=== PATIENT | male | born 1975 ===

== ENCOUNTER 2023-03-10 20:47 | Emergency (ER) | payer SELFPAY ==
[~2023-03-10 20:47] MED LIST: ETOMIDATE 20 MG/10 ML VIAL IV ONE; ROCURONIUM 50 MG/5 ML VIAL IV ONE
[2023-03-10] MEDS ORDERED: NA CHLORIDE 0.9% 1,000 ML IV ONE (20:48)
[2023-03-10] MEDS ORDERED: propofoL 1,000 MG/100 ML VIAL IV ONE ×2 (21:02→22:52)
[2023-03-10] MEDS ORDERED: ALBUTEROL 2.5 MG/3 ML NEB SOL ONE ×2 (21:05→21:24)
[2023-03-10] MEDS ORDERED: IPRATROPIUM BROM 0.5MG/2.5ML ONE ×2 (21:05→21:24)
[2023-03-10 21:18] LABS: Blood Gas Oxyhemoglobin 96.6 % (94-97); Blood O2 Saturation 97.7 % (92-98.5)
--- NOTE | 2023-03-10 21:22 | RAD REPORT ---
EXAM DESCRIPTION: RAD - Chest Single View - 03/10/2023 9:14 pm CLINICAL HISTORY: CHEST PAIN Chest pain. COMPARISON: No comparisons FINDINGS: Portable technique limits examination quality. The lungs are grossly clear. The heart is normal in size. No displaced fractures.ET tube tip is above the kay[place] at the level of the superior aortic arch. Enteric tube is not visualized on this study.
[2023-03-10] MEDS ORDERED: SODIUM BICARB 50 MEQ/50ML VIAL ONE (21:25)
[2023-03-10] MEDS ORDERED: NA CHLORIDE 0.9% 1,000 ML ONE (21:25)
[2023-03-10 21:31] LABS: Hematocrit 39.2 % (39.6-49.0); Lymphocytes % 44.6 % (15.3-44.8); RBC Red Blood Cell Count 3.95 M/uL (4.33-5.43)
[2023-03-10 21:39] LABS: Transitional Epithelial <5 /HPF (None Seen); Urine Bacteria <20 /HPF (<20); Urine Bilirubin NEGATIVE (Negative); Urine Blood Negative (Negative); Urine Clarity Clear (Clear); Urine Color Colorless (Yellow); Urine Glucose NEGATIVE (Negative); Urine Mucus Slight /HPF (None Seen); Urine Protein TRACE (Negative); Urine Urobilinogen Normal (Normal)
[2023-03-10 22:00] LABS: ALT/SGPT 41 U/L (16-61); Albumin 3.2 g/dL (3.4-5.0); Alkaline Phosphatase 69 U/L (45-117); BUN Blood Urea Nitrogen 19 mg/dL (7-18); Bicarbonate 26 mEq/L (21-32); Bilirubin Total 0.3 mg/dL (0.2-1.0); Glomerular Filtration Rate 72 ml/min (=/>90); Glucose Level 240 mg/dL (74-106); Protein, Total 6.8 g/dL (6.4-8.2); Sodium Level 140 mEq/L (136-145)
[2023-03-10 22:01] LABS: Barbiturates NEGATIVE (NEGATIVE); Benzodiazepines NEGATIVE (NEGATIVE); Cocaine POSITIVE (NEGATIVE); METHAMPHETAM POSITIVE (NEGATIVE); Methadone NEGATIVE (NEGATIVE); Opiates NEGATIVE (NEGATIVE); Phencyclidine NEGATIVE (NEGATIVE); THC Cannibis NEGATIVE (NEGATIVE)
[2023-03-10] MEDS ORDERED: FENTANYL CITR 100 MCG/2 ML ONE (22:04)
[2023-03-10] MEDS ORDERED: NA CHLORIDE 0.9% 50 ML ONE (22:04)
[2023-03-10 22:06] LABS: Protime INR 0.98
[2023-03-10 22:11] LABS: AST/SGOT 41 U/L (15-37); Bilirubin Direct < 0.1 mg/dL (0-0.2); Bilirubin Indirect, Calculated ND mg/dL (0.2-0.8); Potassium 3.2 mEq/L (3.5-5.1)
[2023-03-10] MEDS ORDERED: NS KCL 20MEQ 1,000 ML IV ONE (23:17)
[2023-03-10] MEDS ORDERED: METHYLPREDNISOLONE 125 MG INJ ONE (23:17)
[2023-03-10] MEDS ORDERED: Magnesium Sulfate 2gm IVPB 2 G/50 ML BAG IV ONE (23:18)
[2023-03-10] MEDS ORDERED: MIDAZOLAM HCL IN 0.9 % NACL/PF 100 MG/100 ML BAG IVPB ONE (23:28)
[2023-03-11] MEDS ORDERED: propofoL 1,000 MG/100 ML VIAL IV ONE ×2 (00:20→02:30)
[2023-03-11 00:36] LABS: Arterial Blood Carboxyhemoglob 0.5 % (0-1.5); Blood Gas Oxyhemoglobin 97.1 % (94-97); Blood O2 Saturation 99.1 % (92-98.5)
[2023-03-11] MEDS ORDERED: NA CHLORIDE 0.9% 50 ML ONE (01:04)
[2023-03-11] MEDS ORDERED: FENTANYL CITR 100 MCG/2 ML ONE (01:04)
--- NOTE | 2023-03-11 01:09 | EDPHYS ---
Physician Documentation [facility] Name: Asa Williamson Age: 47 yrs Sex: Male : 1975 Arrival Date: 03/10/2023 Time: 20:47 Bed 4 Private MD: ED Physician Rony Mirza HPI: 03/10 20:58 This 47 yrs old Male presents to ER via Unassigned with complaints of sp4 respiratory distress . 20:58 47-year-old male arrived with EMS in acute respiratory distress and unresponsive sp4 condition. Before patient became unresponsive he has called EMS for respiratory problem. Patient reported that at home he has inhaled chlorine from the chlorine container designed for pool disinfection. Patient developed respiratory distress after that and called EMS. Patient has past medical history of asthma. At the site of a residence patient was initially responsive, anxious, tachypneic, had rhonchi on auscultation. EMS reports patient became unresponsive and apneic while in route to the hospital. Patient was administered BVM ventilation. Time of call based on EMS report 20: 05. Historical: - PMHx: 21:09 Diabetes mellitus; Asthma; jj7 - Immunization history:: Adult Immunizations unknown. - Social history:: Smoking status: unknown. - Family history:: not pertinent. ROS: 21:02 Constitutional: Negative for fever, chills, and weight loss, positive respiratory sp4 distress secondary to inhalation of chlorine. Other review of systems is not available secondary to altered mental status 21:02 All other systems are negative. 21:02 Unable to obtain ROS due to altered mental status. Exam: 21:02 Constitutional: This is a well developed, well nourished patient , arrived with EMS sp4 with BVM ventilations in progress. Patient is cyanotic, diaphoretic, and has altered mentation on arrival nonverbal, patient does seem to be awake but he is not responding to verbal stimuli. Patient has oral airway in place. No gag response. Patient was intubated right after arrival. For airway protection. Just prior to intubation patient noted to be hypoxemic 70% on on the monitor Head/Face: Normocephalic, atraumatic. Eyes: Pupils equal round and reactive to light, ENT: Nares patent. No nasal discharge, no septal abnormalities noted. Tympanic membranes are normal and external auditory canals are clear. Oropharynx with no redness, swelling, or masses, exudates Neck: Trachea midline, no thyromegaly or masses palpated, and no cervical lymphadenopathy. Supple, Chest/axilla: Normal chest wall appearance Nontender with no deformity. No lesions are appreciated. Cardiovascular: There is apnea on arrival pulses present and tachycardic at about 100. Cyanotic in appearance, there is regular tachycardia. Respiratory: Lungs have equal breath sounds bilaterally, moderate to severe expiratory wheezes on auscultation bilaterally. Patient is being ventilated with BVM on arrival.. Intubated right after arrival Abdomen/GI: Soft, with normal bowel sounds. No distension or tympany. No guarding or rebound. Back: No spinal tenderness. No costovertebral tenderness. Male : Normal genitalia with no discharge or lesions. Circumcised male Skin: Warm, diffuse cyanosis. Central pallor. Diaphoretic on arrival MS/ Extremity: Pulses equal, no cyanosis. Intact peripheral pulses. No deformities. No sign of trauma Neuro: Unresponsive to verbal stimuli. Unresponsive to painful stimuli. Cyanotic and diaphoretic 21:02 ECG was reviewed by the Attending Physician. Sinus tachycardia at the rate of 153, EKG time 2044 occasional unifocal PVCs in the form of couplets Vital Signs: 20:35 BP 158 / 77; Weight 73.94 kg; Height 5 ft. 10 in. ; jj7 20:43 Pulse 154; Resp 21; Pulse Ox 71% ; jj7 20:45 BP 200 / 125; Pulse 149; Resp 28; Pulse Ox 98% on ETT ambu; jj7 20:50 BP 180 / 112; Pulse 121; Resp 17; Pulse Ox 98% on ETT ambu; jj7 21:30 BP 179 / 123; Pulse 120; Resp 16; Pulse Ox 100% on 80% FiO2 ETT vent; rv 21:45 BP 171 / 114; Pulse 121; Resp 20; Pulse Ox 100% on 80% FiO2 ETT vent; rv 22:00 BP 147 / 89; Pulse 123; Resp 19; Pulse Ox 100% on 80% FiO2 ETT vent; rv 22:15 BP 105 / 63; Pulse 120; Resp 20; Pulse Ox 100% on 80% FiO2 ETT vent; rv 22:30 BP 123 / 80; Pulse 125; Resp 20; Pulse Ox 100% on 80% FiO2 ETT vent; rv 23:15 BP 118 / 75; Pulse 116; Resp 22; Pulse Ox 100% on 80% FiO2 ETT vent; rv 23:30 BP 95 / 55; Pulse 111; Resp 22; Pulse Ox 100% on 80% FiO2 ETT vent; rv 03/11 00:00 BP 106 / 67; Pulse 104; Resp 20; Pulse Ox 100% on 80% FiO2 ETT vent; rv 00:30 BP 116 / 82; Pulse 103; Resp 17; Pulse Ox 100% on 80% FiO2 ETT vent; rv 01:00 BP 105 / 62; Pulse 102; Resp 19; Pulse Ox 100% on 60% FiO2 ETT vent; rv 01:30 BP 102 / 60; Pulse 99; Resp 18; Pulse Ox 100% on 60% FiO2 ETT vent; rv 02:15 BP 102 / 60; Pulse 99; Resp 19; Temp 97.5(Ca); Pulse Ox 100% on 60% FiO2 ETT vent; rv 03/10 20:35 Body Mass Index 23.39 (73.94 kg, 177.8 cm) [facility] [place] Coma Score: 03/10 21:02 Eye Response: to pain(2). Motor Response: none(1). Verbal Response: none(1). Total: 4. sp4 Ventilator: 21:05 Fi02: 80%; Rate: 16min; T.V.: 420ml; Peep: 5cm; ET tube: 7.5 fr (Oral); jj7 Procedures: 03/11 00:58 Intubation: Intubated Camera assisted scope used for intubation using # 4 Candelario sp4 blade with 8.0 mm ETT. Successful on second attempt. Ventilated with Ambu bag. ventilator. Cricoid pressure applied during procedure. Tube secured with ETT strickland at center of mouth measured 23 cm at lip. Placement verified by CXR, CO2 detector with (+) color change, auscultating bilateral breath sounds, O2 saturation after procedure was 100 %. Patient tolerated well, Improved after intubation . MDM: 03/10 20:57 Patient medically screened. sp4 03/11 00:58 Differential Diagnosis altered mental status, sepsis, Acute respiratory failure, sp4 chemical inhalation, drug abuse, intoxication. Data reviewed: vital signs, nurses notes, EMS record, lab test result(s), EKG, radiologic studies, CT scan, plain films. Consideration of Admission/Observation Patient was admitted/placed on observation. Escalation of care including admission/observation considered. Management of patient was discussed with the following: [facility] Heating Fixture Tender: [place] Director at the [facility]. ED course: Patient's ABG has improved with initial PCO2 at 88 and repeat PCO2 at 50.7. Initial pH 7.05 and repeat pH 7.308 patient was difficult to sedate but now remained stable with propofol and Versed sedation. . 01:05 ED course: CT head reveals no acute intracranial abnormality, CT C-spine reveals no sp4 acute fracture or subluxation. Chest x-ray revealed clear lungs. ET tube at the level of clavicles.. NG tube below the level of diaphragm. Patient at this time stable for transfer for hypoxic respiratory failure. With suspect patient's asthma was worsened by use of methamphetamine and cocaine. Patient tested for methamphetamine and cocaine on his urine drug screen.. 03/10 20:53 Order name: Acetaminophen; Complete Time: 23:00 sp4 03/10 20:53 Order name: Basic Metabolic Panel; Complete Time: 23:00 sp4 03/10 20:53 Order name: CBC with Diff; Complete Time: 22:02 sp4 03/10 20:53 Order name: ETOH Level; Complete Time: 23:00 sp4 03/10 20:53 Order name: Hepatic Function; Complete Time: 23:00 sp4 03/10 20:53 Order name: PT-INR; Complete Time: 23:00 sp4 03/10 20:53 Order name: Ptt, Activated; Complete Time: 23:00 sp4 03/10 20:53 Order name: Salicylate; Complete Time: 23:00 sp4 03/10 20:53 Order name: Urinalysis w/ reflexes; Complete Time: 22:02 sp4 03/10 20:53 Order name: Urine Drug Screen; Complete Time: 22:02 sp4 03/10 20:57 Order name: Lipase; Complete Time: 22:02 4 03/10 20:57 Order name: Lactate w/ 2H reflex if indic.; Complete Time: 23:00 4 03/10 21:13 Order name: ABG; Complete Time: 22: sp4 03/10 22:02 Order name: Urine Culture EDMS 03/11 00:20 Order name: ABG; Complete Time: 00:56 4 03/11 00:20 Order name: SARS RAPID; Complete Time: 02:24 sp4 03/10 20:55 Order name: Chest Single View XRAY; Complete Time: 22:02 sp4 03/10 20:56 Order name: CT Head C Spine 4 03/10 20:53 Order name: EKG - Nurse/Tech; Complete Time: 23:06 sp4 03/10 20:53 Order name: IV Saline Lock; Complete Time: 23:06 sp4 03/10 20:53 Order name: Labs collected and sent; Complete Time: 23:06 sp4 03/10 20:53 Order name: Suicide Screening ([place]); Complete Time: 23:06 sp4 03/10 20:55 Order name: P[place]; Complete Time: 21:15 sp4 03/10 20:55 Order name: NG Tube; Complete Time: 21:15 sp4 EC/05 21:02 Rate is 153 beats/min. Rhythm is regular, Sinus tachycardia with Occasional PVCs. QRS sp4 [place] is Normal. [place] interval is normal. Clinical impression: No evidence of ischemia. Interpreted by me. Administered Medications: 20:40 Drug: NS 0.9% IV 1000 ml Route: IV; Rate: 1 bolus; Site: right hand; rv 03/11 02:40 Follow up: IV Status: Completed infusion; IV Intake: 1000ml rv 03/10 20:41 Drug: Etomidate IVP 40 mg Route: IVP; Site: right hand; rv 03/11 02:41 Follow up: Response: No adverse reaction rv 03/10 20:42 Drug: Rocuronium IVP 100 mg Route: IVP; Site: right hand; rv 03/11 02:40 Follow up: Response: No adverse reaction rv 03/10 21:00 Drug: NS 0.9% IV 1000 ml Route: IV; Rate: 125 ml/hr; Site: right hand; rv 03/11 02:40 Follow up: IV Status: Infusion continued upon transfer rv 03/10 21:10 Drug: Propofol IV 5 mcg/kg/min Route: IV; Rate: calculated rate; Site: left antecubital;rv 21:21 Drug: Sodium Bicarbonate IVP 1 amp Route: IVP; Site: right hand; rv 03/11 02:40 Follow up: Response: No adverse reaction rv 03/10 21:24 Drug: DuoNeb Nebulize (3:1) (2.5 mg - 0.5 mg) 3 ml Route: Nebulizer; rv 03/11 02:41 Follow up: Response: No adverse reaction rv 03/10 21:24 Drug: DuoNeb Nebulize (3:1) (2.5 mg - 0.5 mg) 3 ml Route: Nebulizer; rv 03/11 02:40 Follow up: Response: No adverse reaction rv 03/10 21:24 Drug: DuoNeb Nebulize (3:1) (2.5 mg - 0.5 mg) 3 ml Route: Nebulizer; rv 03/11 02:40 Follow up: Response: No adverse reaction rv 03/10 22:02 Drug: Propofol IV 5 mcg/kg/min Route: IV; Rate: calculated rate; Site: left antecubital;rv 03/11 02:41 Follow up: IV Status: Infusion continued upon transfer rv 03/10 22:02 Drug: fentaNYL (PF) IV 25 mcg/kg/h Route: IV; Rate: calculated rate; Site: right hand; rv 03/11 02:39 Follow up: IV Status: Infusion continued upon transfer rv 03/10 23:15 Drug: MethylPrednisoLONE IVP 125 mg Route: IVP; Site: right antecubital; rv 03/11 02:39 Follow up: Response: No adverse reaction rv 03/10 23:15 Drug: Magnesium Sulfate IVPB 2 grams Route: IVPB; Infused Over: 2 hrs; Site: right rv antecubital; 03/11 02:39 Follow up: IV Status: Infusion continued upon transfer rv 03/10 23:33 Drug: NS 0.45 % with KCl IV 20 mEq/L 1000 ml Route: IV; Rate: 125 ml/hr; Site: right rv antecubital; 03/11 02:39 Follow up: IV Status: Infusion continued upon transfer rv 03/10 23:33 Drug: Midazolam IVP or IV 0.01 mg/kg/h Route: IV; Rate: calculated rate; Site: left rv forearm; 03/11 02:39 Follow up: IV Status: Infusion continued upon transfer rv Disposition Summary: 03/11/23 01:08 Transfer Ordered Transfer Location: Other Acute Care Facility sp4 Reason: Higher level of care sp4 Condition: Stable sp4 Problem: new sp4 Symptoms: have improved sp4 Accepting Physician: Nilda CARLTON at [facility] (03/11/23 02:46) rv Diagnosis - Acute hypoxic respiratory failure, asthma exacerbation, status asthmaticus, sp4 methamphetamine abuse, cocaine abuse, chlorine inhalation, hypercarbia, acidosis, respiratory acidosis Forms: - Medication Reconciliation Form sp4 - SBAR form sp4 Critical care time excluding procedures: 01:05 Critical care time: Bedside Care: 36 minutes, Consultation: 12 minutes, Family sp4 Intervention: 15 minutes. Total time: 63 minutes Signatures: Dispatcher [employer] EDKY Owen Diaz RN RN rv Lilian Treadwell RN RN jj7 Rony Mirza MD MD sp4 Corrections: (The following items were deleted from the chart) 03/10 21:12 20:56 Abdomen 1 View+[email or web address] ordered. [facility] 03/11 02:46 01:08 Nilda CARLTON at [facility] sp4 rv
--- NOTE | 2023-03-11 01:09 | ER ---
Nurse's Notes [facility] Name: Asa Williamson Age: 47 yrs Sex: Male : 1975 Arrival Date: 03/10/2023 Time: 20:47 Bed 4 Private MD: Diagnosis: Acute hypoxic respiratory failure, asthma exacerbation, status asthmaticus, methamphetamine abuse, cocaine abuse, chlorine inhalation, hypercarbia, acidosis, respiratory acidosis Presentation: 03/10 20:35 Chief complaint: EMS states: EMS REPORTS PT WAS CLEANING HIS POOL AND ACCIDENTALLY jj7 INHALED THE BLEACH/CHLORINE TABS. HAS HX OF ASTHMA. PT BECAME SOB. Coronavirus screen: At this time, the client does not indicate any symptoms associated with coronavirus-19. Ebola Screen: No symptoms or risks identified at this time. Risk Assessment: Do you want to hurt yourself or someone else? Unable to obtain. Onset of symptoms was March 10, 2023. Care prior to arrival: Oral airway placed, Medication(s) given: Albuterol Neb Atrovent Neb x 1, SOLU-MEDROL 125MG. 20:35 Method Of Arrival: EMS: [facility] jj7 20:35 Acuity: PENNY 2 jj7 23:45 Initial Sepsis Screen: Does the patient meet any 2 criteria? No. Patient's initial rv sepsis screen is negative. Does the patient have a suspected source of infection? No. Patient's initial sepsis screen is negative. Triage Assessment: 21:09 General: Appears distressed, Behavior is unresponsive. Respiratory: Airway via oral jj7 airway Respiratory effort is labored, EMS IS USING BVM ON ARRIVAL Respiratory pattern is agonal PT TURNING BLUE BUT STILL HAS PULSE the patient has severe shortness of breath. Historical: - PMHx: 21:09 Diabetes mellitus; Asthma; jj7 - Immunization history:: Adult Immunizations unknown. - Social history:: Smoking status: unknown. - Family history:: not pertinent. Screenin:45 [facility] ED Fall Risk Assessment (Adult) History of falling in the last 3 months, rv including since admission No falls in past 3 months (0 pts) Confusion or Disorientation Yes (5 pts) Intoxicated or Sedated Yes (3 pts) Impaired Gait Yes (1 pt) Mobility Assist Device Used Yes (1 pt) Altered Elimination Yes (1 pt) Score/Fall Risk Level 3 or more points = High Risk Oriented to surroundings, Maintained a safe environment, Educated pt \T\ family on fall prevention, incl call for assistance when getting out of bed, Assessed \T\ reinforced patient's understanding of fall precautions, Provided non-skid footwear, Hourly rounding (assess needs \T\ fall precautionary measures) done, Used ambulatory aids as needed (educated on \T\ assisted with), Used gait belt as appropriate Implemented a Fall Risk Plan of Care, Apply high fall risk patient identification: yellow non skid footwear/ fall signage, Placed fall mat w/ non beveled edge next to bed, Activated bed/chair alarm, Remained w/in arm's length of patient and in sight while toileting, Offered frequent toileting (1:1 observation), Remained with patient while ambulating, Utilized family, sitter, or virtual crop adjuster as indicated. Abuse screen: Denies threats or abuse. Denies injuries from another. Nutritional screening: No deficits noted. Tuberculosis screening: No symptoms or risk factors identified. Assessment: 20:35 General: Appears distressed. rv 20:35 Pain: Unable to use pain scale. Patient is unresponsive. Neuro: Level of Consciousness rv is unresponsive. Cardiovascular: Heart tones present Pulses are all present. Rhythm is sinus tachycardia. Respiratory: Respiratory effort is weak, PATIENT IS CAME WITH LMA OXYGEN SUPPLEMENTATION WITH BAGGING. GI: No deficits noted. : No deficits noted. Derm: No deficits noted. 23:46 Reassessment: WITH EPISODES OF RESTLESSNESS, PT IS ON PROPOFOL DRIP, FENTANYL DRIP. rv UPDATED DR SHAW REGARDING PT'S STATUS. NEW ORDER RECEIVED. VERSED DRIP STARTED. Reassessment: FAMILY IS AT BEDSIDE, UPDATED ON THE STATUS OF THE PT. DR SHAW TALKED TO THE DAUGHTER WELL AT THE BEDSIDE. DAUGHTER IS AWARE OF THE PT STATUS AND PLAN OF CARE. AWAITING TRANSFER TO MEDICAL CENTER. Reassessment:. Vital Signs: 20:35 BP 158 / 77; Weight 73.94 kg; Height 5 ft. 10 in. ; jj7 20:43 Pulse 154; Resp 21; Pulse Ox 71% ; jj7 20:45 BP 200 / 125; Pulse 149; Resp 28; Pulse Ox 98% on ETT ambu; jj7 20:50 BP 180 / 112; Pulse 121; Resp 17; Pulse Ox 98% on ETT ambu; jj7 21:30 BP 179 / 123; Pulse 120; Resp 16; Pulse Ox 100% on 80% FiO2 ETT vent; rv 21:45 BP 171 / 114; Pulse 121; Resp 20; Pulse Ox 100% on 80% FiO2 ETT vent; rv 22:00 BP 147 / 89; Pulse 123; Resp 19; Pulse Ox 100% on 80% FiO2 ETT vent; rv 22:15 BP 105 / 63; Pulse 120; Resp 20; Pulse Ox 100% on 80% FiO2 ETT vent; rv 22:30 BP 123 / 80; Pulse 125; Resp 20; Pulse Ox 100% on 80% FiO2 ETT vent; rv 23:15 BP 118 / 75; Pulse 116; Resp 22; Pulse Ox 100% on 80% FiO2 ETT vent; rv 23:30 BP 95 / 55; Pulse 111; Resp 22; Pulse Ox 100% on 80% FiO2 ETT vent; rv 03/11 00:00 BP 106 / 67; Pulse 104; Resp 20; Pulse Ox 100% on 80% FiO2 ETT vent; rv 00:30 BP 116 / 82; Pulse 103; Resp 17; Pulse Ox 100% on 80% FiO2 ETT vent; rv 01:00 BP 105 / 62; Pulse 102; Resp 19; Pulse Ox 100% on 60% FiO2 ETT vent; rv 01:30 BP 102 / 60; Pulse 99; Resp 18; Pulse Ox 100% on 60% FiO2 ETT vent; rv 02:15 BP 102 / 60; Pulse 99; Resp 19; Temp 97.5(Ca); Pulse Ox 100% on 60% FiO2 ETT vent; rv 03/10 20:35 Body Mass Index 23.39 (73.94 kg, 177.8 cm) jj7 Eryn Coma Score: 03/10 21:02 Eye Response: to pain(2). Motor Response: none(1). Verbal Response: none(1). Total: 4. sp4 ED Course: 20:32 Maintain EMS IV. Dressing intact. Site clean \T\ dry. Gauge \T\ site: 18G RIGHT HAND. IV jj 7 Changed dressing on Flushed. 20:42 Assisted provider with intubation using 7.5 mm ETT via oral route. ET tube secured at jj7 24cm at the teeth. Set up intubation tray. Intubated by Rony Mirza MD Placement verified by End-tidal CO2 montioring Patient tolerated well. 20:45 Inserted saline lock: 20 gauge in left antecubital area, using aseptic technique. jj7 20:49 Patient arrived in ED. kl 20:49 Rony Mirza MD is Attending Physician. sp4 20:53 NGT: inserted 12 Fr. via right nare. jj7 20:55 Owen Diaz, LORETO is Primary Nurse. rv 21:00 Inserted saline lock: 20 gauge in right antecubital area, using aseptic technique. rv 21:00 Patient has correct armband on for positive identification. Placed in gown. Bed in low rv position. Call light in reach. Side rails up X2. Adult w/ patient. 21:00 Client placed on continuous cardiac and pulse oximetry monitoring. NIBP monitoring rv applied. monitor technician on. CORE TEMPERATURE, BLADDER. 21:00 Arm band placed on right wrist. rv 21:05 NGT: inserted 16 Fr. via right nare. Placement verified by X-ray, to intermittent jj7 suction. Patient tolerated well. 21:05 Assist ventilation with ventilator. jj7 21:08 Triage completed. jj7 21:16 Chest Single View XRAY In Process Unspecified. EDMS 22:20 Notified ED physician of a critical lab result(s). lactate 3.0. kl 23:00 Phelps cath inserted, using sterile technique, 16 Fr., by me, balloon inflated, to rv gravity drainage. 23:00 Inserted saline lock: 20 gauge in left forearm, using aseptic technique. rv 23:10 CT Head C Spine In Process Unspecified. EDMS 23:30 Initial contact attempt to [facility]. Ranged for 2 minutes. ah1 23:34 2nd attempt to [facility]. ah1 23:40 3rd attempt for initial contact I spoke with Tori Mckeon . She [facility] and that [facility] didn't have ICU at the moment. 23:55 Tori Mckeon RN from [facility] called back for an update. Stating that [facility] couldn't accept the patient and she will give me a call back after trying the [facility]. 03/11 00:17 [facility] Handkerchief Presser called back to speak with doctor ronan for approval. ah1 00:58 Physician approval from Santos Krause. ah1 01:14 Hospital bed approval from Tori mckeon RN. ah1 01:30 Contacted [facility] for transfer. ah1 02:35 Patient transferred, IV remains in place. rv Administered Medications: 03/10 20:40 Drug: NS 0.9% IV 1000 ml Route: IV; Rate: 1 bolus; Site: right hand; rv 03/11 02:40 Follow up: IV Status: Completed infusion; IV Intake: 1000ml rv 03/10 20:41 Drug: Etomidate IVP 40 mg Route: IVP; Site: right hand; rv 03/11 02:41 Follow up: Response: No adverse reaction rv 03/10 20:42 Drug: Rocuronium IVP 100 mg Route: IVP; Site: right hand; rv 03/11 02:40 Follow up: Response: No adverse reaction rv 03/10 21:00 Drug: NS 0.9% IV 1000 ml Route: IV; Rate: 125 ml/hr; Site: right hand; rv 03/11 02:40 Follow up: IV Status: Infusion continued upon transfer rv 03/10 21:10 Drug: Propofol IV 5 mcg/kg/min Route: IV; Rate: calculated rate; Site: left antecubital;rv 21:21 Drug: Sodium Bicarbonate IVP 1 amp Route: IVP; Site: right hand; rv 03/11 02:40 Follow up: Response: No adverse reaction rv 03/10 21:24 Drug: DuoNeb Nebulize (3:1) (2.5 mg - 0.5 mg) 3 ml Route: Nebulizer; rv 03/11 02:41 Follow up: Response: No adverse reaction rv 03/10 21:24 Drug: DuoNeb Nebulize (3:1) (2.5 mg - 0.5 mg) 3 ml Route: Nebulizer; rv 03/11 02:40 Follow up: Response: No adverse reaction rv 03/10 21:24 Drug: DuoNeb Nebulize (3:1) (2.5 mg - 0.5 mg) 3 ml Route: Nebulizer; rv 03/11 02:40 Follow up: Response: No adverse reaction rv 03/10 22:02 Drug: Propofol IV 5 mcg/kg/min Route: IV; Rate: calculated rate; Site: left antecubital;rv 03/11 02:41 Follow up: IV Status: Infusion continued upon transfer rv 03/10 22:02 Drug: fentaNYL (PF) IV 25 mcg/kg/h Route: IV; Rate: calculated rate; Site: right hand; rv 03/11 02:39 Follow up: IV Status: Infusion continued upon transfer rv 03/10 23:15 Drug: MethylPrednisoLONE IVP 125 mg Route: IVP; Site: right antecubital; rv 03/11 02:39 Follow up: Response: No adverse reaction rv 03/10 23:15 Drug: Magnesium Sulfate IVPB 2 grams Route: IVPB; Infused Over: 2 hrs; Site: right rv antecubital; 03/11 02:39 Follow up: IV Status: Infusion continued upon transfer rv 03/10 23:33 Drug: NS 0.45 % with KCl IV 20 mEq/L 1000 ml Route: IV; Rate: 125 ml/hr; Site: right rv antecubital; 03/11 02:39 Follow up: IV Status: Infusion continued upon transfer rv 03/10 23:33 Drug: Midazolam IVP or IV 0.01 mg/kg/h Route: IV; Rate: calculated rate; Site: left rv forearm; 03/11 02:39 Follow up: IV Status: Infusion continued upon transfer rv Medication: 03/10 23:45 VIS not applicable for this client. rv Intake: 03/11 02:40 IV: 1000ml; Total: 1000ml. rv Ventilator: 03/10 21:05 Fi02: 80%; Rate: 16min; T.V.: 420ml; Peep: 5cm; ET tube: 7.5 fr (Oral); jj7 Outcome: 03/11 01:08 ER care complete, transfer ordered by sp4 02:32 Transferred by ground EMS to [facility], Note: [facility] rv 02:32 Condition: stable 02:32 Instructed on the need for transfer. 02:46 Patient left the ED. rv Signatures: Dispatcher [employer] EDJeanette Wallace RN RN kl Vicente, Ronaldo, RN RN rv Johnson, Juwairiyah, RN RN jjRony Johnson MD MD sp4 [place] Corrections: (The following items were deleted from the chart) 03/10 21:19 20:45 BP 200 / 125; Pulse 121bpm; Resp 17bpm; Pulse Ox 98% ET / Ambu; [facility] j 21:24 21:09 Respiratory: Airway via oral airway Respiratory effort is EMS IS USING BVM ON j7 ARRIVAL PT TURNING BLUE BUT STILL HAS PULSE the patient has severe shortness of breath [facility] 03/11 01:50 03/10 23:40 3rd attempt for initial contact i spoke with . She said she'll give [facility] a [facility] with approval and that [facility] didn't have ICU at [facility] moment [facility] 03/11 01:50 03/10 23:55 [facility] called back for an update. Stating that [facility] and she will give me a call back after trying the [facility] 03/11 01:50 00:58 Physician approval [place] [phone]
[2023-03-11 01:18] LABS: SARS-CoV-2 Antigen Rapid Res Negative (Negative)
[2023-03-11 03:27] VITALS: O2SAT 100
[2023-03-11 03:41] VITALS: BP 102/60
[2023-03-11 03:42] VITALS: TEMP 97.5
--- NOTE | 2023-03-11 14:39 | RAD REPORT ---
EXAM DESCRIPTION: CT - Head C Spine Mpr Wo Con - 03/11/2023 6:48 am CLINICAL HISTORY: Altered mental status. TECHNIQUE: 5 mm axial images of the intracranial structures were obtained without intravenous contra st. Coronal and sagittal reformatted images were obtained. COMPARISON: None.. DOSE OPTIMIZATION: This facility uses dose optimization techniques as appropriate to perform exams, i ncluding at least one of the following techniques: 1. Automated exposure control. 2. Adjustment of the mA and/or kV according to patient size (this includes techniques or standardized protocols for targeted exams where dose is matched to the indication/reason for exam, i.e. extremiti es or head). 3. Use of iterative reconstructive technique. FINDINGS: No abnormal acute extracerebral fluid collections are demonstrated. The cortical sulci, ventricles, and cisterns are within normal limits. There are no areas of altered attenuation to suggest acute hemorrhage, acute infarct, or mass lesio n. The visualized portions of the paranasal sinuses and mastoid air cells are remarkable for moderately severe mucosal thickening within the frontal and ethmoid air cells bilaterally and within the right m axillary sinus. IMPRESSION: 1. No acute intracranial abnormalities. 2. Paranasal sinusitis. CLINICAL HISTORY: Pain.. TECHNIQUE: CT scan of the cervical spine without contrast. 2.0 mm reconstruction axial images were o btained along with coronal and sagittal reformatted images. COMPARISON: None. DOSE OPTIMIZATION: This facility uses dose optimization techniques as appropriate to perform exams, i ncluding at least one of the following techniques: 1. Automated exposure control. 2. Adjustment of the mA and/or kV according to patient size (this includes techniques or standardized protocols for targeted exams where dose is matched to the indication/reason for exam, i.e. extremiti es or head). 3. Use of iterative reconstructive technique. FINDINGS: BONY STRUCTURES: C1: No fracture or subluxation. C2: No fracture or subluxation. C3: No fracture or subluxation. C4: No fracture or subluxation. C5: No fracture or subluxation. C6: No fracture or subluxation. C7: No fracture or subluxation. T1: No fracture or subluxation. T2: No fracture or subluxation. SOFT TISSUES: An endotracheal tube and NG tube are identified.. LUNG APICES: No active infiltrates. IMPRESSION: 1. No fracture or subluxation. 2. No acute abnormalities. Electronically signed by: Wilder Hodges MD 03/11/2023 12:10 AM CDT Due to temporary technical issues with the PACS/Fluency reporting system, reports are being signed by the in house radiologists without review as a courtesy to insure prompt reporting. The interpreting radiologist is fully responsible for the content of the report.
--- NOTE | 2023-03-12 07:19 | EKG ---
Test Date: 2023-03-10 Test Time: 20:45:02 Rails Developer: HANNA MEASUREMENT RESULTS: Intervals: Rate: 153 OR: QRSD: 84 QT: 330 QTc: 526 [place]: P: OR: QRS: 80 T: 79 INTERPRETIVE STATEMENTS: Undetermined rhythm Nonspecific ST abnormality Abnormal ECG No previous ECG available for comparison Electronically Signed On 03-12-23 07:14:29 CDT by Marcus Skaggs
== END 2023-03-11 02:46 ==
LOC: ER 20:47
DX: J96.01 Acute respiratory failure with hypoxia (principal); J45.901 Unspecified asthma with (acute) exacerbation; J45.902 Unspecified asthma with status asthmaticus; F15.10 Other stimulant abuse, uncomplicated; F14.10 Cocaine abuse, uncomplicated; T59.4X1A Toxic effect of chlorine gas, accidental (unintentional), initial encounter
CPT/HCPCS: 31500; 36415; 51702; 70450; 71045; 72125; 80048; 80076; 80143; 80179; 80307; 81001; 82077; 82805; 83605; 83690; 85025; 85610; 85730; 87086; 87088; 87811; 93005; 94002; 94640; 99291; 99292; J2250; J2704; J2930; J3010; J3475; J3480; J7030; J7613; J7644